=== PATIENT | female | born 1995 | race African-American/Black ===

== ENCOUNTER 2018-09-04 06:25 | Day surgery (SDC) | payer BC, OTHER ==
[2018-09-03 10:46] VITALS: BMI 38.5
[2018-09-04] MEDS ORDERED: DESFLURANE GAS 240 ML BOTTLE IH ONE (07:15)
[2018-09-04] MEDS ORDERED: LIDOCAINE HCL 2% JELLY 10 ML CARTRIDGE ONE (07:15)
[2018-09-04] MEDS ORDERED: MIDAZOLAM HCL 2 MG/2 ML SINGLE DOSE VIAL ONE (07:34)
[2018-09-04] MEDS ORDERED: SUCCINYLCHOLINE CHLORIDE 200 MG/10 ML SYRINGE ONE (07:34)
[2018-09-04] MEDS ORDERED: fentaNYL CITRATE 250 MCG/5 ML VIAL ONE (07:34)
[2018-09-04] MEDS ORDERED: ROCURONIUM BROMIDE 50 MG/5 ML SYRINGE ONE (07:34)
[2018-09-04] MEDS ORDERED: PROPOFOL 20 ML ONE ×2 (07:34)
[2018-09-04] MEDS ORDERED: LIDOCAINE HCL/PF 2% SDV 5ML VIAL ONE (07:35)
[2018-09-04] MEDS ORDERED: DEXAMETHASONE SOD PHOSPHATE 4 MG/1 ML VIAL ONE (07:38)
[2018-09-04] MEDS ORDERED: GLYCOPYRROLATE 0.2 MG/1 ML VIAL ONE (08:04)
[2018-09-04] MEDS ORDERED: NEOSTIGMINE METHYLSULFATE 0.5 MG/ML - 10 ML MDV ONE (08:04)
--- NOTE | 2018-09-04 08:35 | OP ---
Operative Note - Note: Operative Date: 09/04/18 Pre-Operative Diagnosis: chronic tonsillitis Operation: tonsillectomy Post-Operative Diagnosis: Same as Pre-op Surgeon: Johnie Braun Anesthesiologist/SYSTEM ADMINISTRATION MANAGER: Saúl Washington Anesthesia: General Specimens Removed: tonsils Estimated Blood Loss (mls): 5 Operative Report Dictated: Yes
--- NOTE | 2018-09-04 09:05 | OP ---
DATE OF OPERATION: 09/04/2018 PREOPERATIVE DIAGNOSIS: Chronic tonsillitis. POSTOPERATIVE DIAGNOSIS: Chronic tonsillitis. PRODEDURE: Tonsillectomy. SURGEON: Johnie Braun MD ANESTHESIA: General endotracheal by Saúl Washington CRNA. INDICATIONS: The patient is a 23-year-old woman with frequently recurrent tonsillitis despite adequate medical management who requests tonsillectomy. The nature and purpose of the proposed procedure as well as the risks, benefits, alternatives, and possible complications were discussed in detail with the patient. She appeared to understand and wished to proceed with surgery. All questions were answered, and an informed consent was given by the patient. PROCEDURE DESCRIPTION FOLLOWS: With the patient under general endotracheal anesthesia in the supine position, she was prepped and draped in the usual sterile fashion. An appropriate time-out was performed. The mouth was opened with a mouth gag keeping the tongue and endotracheal tube in the midline position, and the mouth gag was suspended from chest towels. A Coblation Evac 70 Wand was used to dissect the tonsils from their underlying fossas. Hemostasis was achieved with the same instrument. When the procedure was concluded, the mouth gag was taken off of suspension and removed, and when the patient awakened, she was discharged to the recovery room in satisfactory condition. The estimated blood loss was 5 mL. There were no complications. Specimen was sent for permanent pathology. OJHNIE BRAUN M.D. SUMMER/[id number] MTDD
[2018-09-04] MEDS ORDERED: oxyCODONE HCL 5 MG TABLET PO PRN (09:16)
[2018-09-04] MEDS ORDERED: ONDANSETRON 4 MG/2 ML VIAL IVPUSH PRN (09:16)
[2018-09-04] MEDS ORDERED: LACTATED RINGERS SOLUTION 1,000 ML IV SCH (09:30)
[2018-09-04 11:22] VITALS: BP 127/78; PULSE 90; TEMP 97.9
--- NOTE | 2018-09-07 17:13 | PATH ---
Surgical Pathology Report Patient Name: JASMINE MCCORMACK [facility]. Rec. 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 Electronically Signed Vianca Guy M.D. Gross Description Received in formalin labeled "bilateral tonsils," are 2 pink-blum, undesignated, ovoid portions of soft tissue, consistent with tonsils. The tonsils measure 3.0 x 2.0 x 1.4 cm and 3.1 x 1.8 x 1.6 cm. The outer surfaces are blum-pink, convoluted and vary from smooth to cauterized. Sectioning reveals homogeneous blum-pink parenchyma with cryptic architecture and focal yellow granules. [employer] sections are submitted in 2 cassettes. DL/09/04/2018 saudi/09/04/2018
== END 2018-09-04 11:22 | disposition home or self-care (01) ==
LOC: JASU-SURG 06:25
PROVIDERS: ATTEND Otolaryngology
PROC: 0CTPXZZ Resection of Tonsils, External Approach (ICD-10-PCS; principal; 2018-09-04 07:30)
DX: J35.01 Chronic tonsillitis (principal)
CPT/HCPCS: 36415; 84702; 88304-TC; 94760